=== PATIENT | female | born 1975 | race Two or more races ===

== ENCOUNTER 2025-10-14 22:20 | Emergency (ER) | payer BC, OTHER ==
[~2025-10-14] VITALS: Ht 157.5 cm; Wt 86.2 kg
--- NOTE | 2025-10-14 23:32 | ED.PDOC ---
History of Present Illness HPI Comments 49-year-old female who came to ER for abdominal pain. Patient states about 10:00 a.m. today she developed episodes of epigastric abdominal pain, nonradiating. Denies any nausea or vomiting or changes in bowel habits. Patient is status post gastric sleeve October 2024. REVIEW OF SYSTEMS: General: No fever, no chills, or fatigue HEENT: No sore throat, no earache, no congestion, no neck pain. Cardiac: No chest pain. No palpitations. Lungs: No shortness of breath, no cough. GI: No nausea, no vomiting, no diarrhea, no constipation, (+) abdominal pain : No dysuria, frequency, or urgency. No hematuria. Musculoskeletal: No joint pain , no joint swelling, no extremity edema. Skin: No rash, no itching. Neuro: No headache, no dizziness, no weakness EXAM: General: Awake, alert and oriented. No acute distress. Skin: Skin in warm, dry and intact. Appropriate color for ethnicity. HEENT: The head is normocephalic and atraumatic. Conjunctivae are clear without exudates or hemorrhage. Sclera is non-icteric. EOM are intact. No signs of nystagmus. Eyelids are normal in appearance without swelling or lesions. Oral mucosa is pink and moist Neck: The neck is supple with normal range of motion. No JVD. Cardiac: Heart rate and rhythm are normal. No murmurs, gallops, or rubs are auscultated. Respiratory: No signs of respiratory distress. Lung sounds are clear in all lobes bilaterally without rales, rhonchi, or wheezes. Abdominal: Abdomen is soft, non-tender without distention. Bowel sounds are present and normoactive in all four quadrants. Extremities: Upper and lower extremities are atraumatic in appearance without deformity or edema. Neurological: The patient is awake, alert and oriented to person, place, and time with normal speech. Speech is clear. There is no facial asymmetry. Psychiatric: Appropriate mood and affect. Good judgement and insight Chief Complaint: Abdominal Pain Time Seen by MD: 23:31 Reviewed Notes: Nurses Notes Information Source: Patient Past Medical History PAST MEDICAL HISTORY: High Lipids, HTN Surgical History (Other): Gastric sleeve ELEMENTARY TUTOR History: Denies all ELEMENTARY TUTOR Hx Family History Family History: Reviewed,noncontributory to illness Social History Smoker: Non-Smoker Alcohol: Denies ETOH Use Drugs: Denies Drug Use Lives In: Home Was a procedure done? Was a procedure done?: No Differential Dx Considerations may include: Gastritis, gastroenteritis, bowel obstruction Time of 1ST Reevaluation: 23:25 Reevaluation 1ST: Unchanged Patient Education/Counseling: Need For Follow Up Family Education/Counseling: No Family Present Critical Care Note Critical Care Time?: No Stability Stability form required: No Heart Score Heart Score: Heart Score Response (Comments) Value History N/A 0 EKG N/A 0 Age N/A 0 Risk Factors N/A 0 Troponin N/A 0 Total 0 I personally scribed for YARIEL SWEET MD ([email or web address]) on 10/14/25 at 23:32. Electronically submitted by Martinez Sharp ([facility]). YARIEL SWEET MD Oct 14, 2025 23:32
[2025-10-14 23:44] LABS: Hematocrit 37.7 % (36.0-46.0); Hemoglobin 12.8 g/dL (12.2-16.2); Mean Corpuscular Hemoglobin 30.6 pg (28.0-32.0); Mean Corpuscular Volume 90.2 fL (80.0-100.0); Nucleated Red Blood Cells % 0.0 %
[2025-10-14 23:50] VITALS: TEMP 98.2; O2SAT 98
[2025-10-15 00:04] LABS: Albumin 4.3 g/dL (3.2-4.8); Anion Gap 8 (5-15); BUN/Creatinine Ratio 19.3 (10.0-20.0); Blood Urea Nitrogen 11 mg/dL (9-23); Calcium 9.1 mg/dL (8.7-10.4); Carbon Dioxide 26 mmol/L (20-31); Chloride 105 mmol/L (98-107); Lipase 38 U/L (12-53); Potassium 3.7 mmol/L (3.5-5.1); Sodium 139 mmol/L (136-145); Total Protein 6.9 g/dL (5.7-8.2)
[2025-10-15 00:05] LABS: Bilirubin, Total 1.2 mg/dL (0.2-1.0)
[2025-10-15 00:08] LABS: Alanine Aminotransferase 280 U/L (7-40); Alkaline Phosphatase 166 U/L (46-116); Glucose 144 mg/dL (74-106)
--- NOTE | 2025-10-15 00:22 | DVH ---
Exam: CT CT AB PEL WO CON-NO ORAL OR IV History: ABD PAIN Comparison Study: None Technique: CT acquisition of the abdomen and pelvis without contrast. Axial, coronal and sagittal multiplanar reformats were obtained from the axial data set by the technologist. Radiation Dose : 1. Abdomen/Pelvis: CTDIvol 14.46 mGy, DLP 893.02 mGy*cm. Findings: Evaluation of solid organs is limited due to lack of intravenous contrast use. Lower Chest: No acute findings. Liver: Unremarkable. Gallbladder and Biliary Tree: Distended gallbladder with calcifications at the fundus. Mild wall thickening and/or pericholecystic fluid suspected. No ductal dilation. Pancreas: Unremarkable. Spleen: Unremarkable. Adrenal Glands: Unremarkable. Kidneys/Ureters: No urinary stone or obstruction. Bladder: Grossly unremarkable for degree of distention. Pelvic Organs: Diminutive or absent uterus. Bowel: No wall thickening or obstruction. Postsurgical change of the stomach compatible with sleeve gastrectomy. No evidence of appendicitis. Vasculature: Unremarkable. Lymphadenopathy: No obvious adenopathy. Peritoneum: No ascites, free air, or fluid collection. Abdominal Wall: No significant hernia. Musculoskeletal: No acute findings. Mild degenerative changes. IMPRESSION: 1. Cholelithiasis with suspected mild gallbladder inflammation. Correlate with hepatic enzymes and consider right upper quadrant ultrasound. 2. No other acute abdominopelvic abnormality, evidence of urinary stone or obstruction. Radiation optimization: All CT scans at this facility use at least one of these dose optimization techniques: automated exposure control mA and/or kV adjustment per patient size (includes targeted exams where dose is matched to clinical indication) or iterative reconstruction.
[2025-10-15] MEDS ORDERED: PIPERACILLIN-TAZOB 3.375GM 100 ML IV ONE ×2 (00:45→02:22)
[2025-10-15 01:15] VITALS: BP 150/75; PULSE 75; RESP 18
[2025-10-15] MEDS: MORPHINE SULFATE INJ 2 MG/ml SYRG IV ONE (01:15)
[2025-10-15] MEDS ORDERED: MORPHINE SULFATE 4 MG/ML SYR/VIAL ONE (02:22)
== END 2025-10-15 03:22 | disposition left against medical advice (07) ==
LOC: EEVIPCON 22:20 → ER 22:20
DX: R10.13 Epigastric pain (principal); I10 Essential (primary) hypertension; E78.5 Hyperlipidemia, unspecified; Z98.84 Bariatric surgery status
CPT/HCPCS: 36415; 74176; 80053; 83690; 84484; 85025; 96374; 99285; J2270; J2543